=== PATIENT | male | born 1980 | race Caucasian/White ===

== ENCOUNTER 2025-03-18 14:29 | Inpatient (IN) | payer OTHER ==
[~2025-03-18] VITALS: Ht 180.3 cm; Wt 85.9 kg
[2025-03-18] MEDS ORDERED: 0.9% SODIUM CHLORIDE 10 ML SYRINGE IVP PRN (17:45)
[2025-03-18] MEDS: SODIUM CHLORIDE 0.9% 2,600 ML IV ONE (18:02)
[2025-03-18 18:07] LABS: PLATELET COUNT (AUTO) 153 K/uL (150-450); RED BLOOD CELL COUNT(AUTO) 4.76 MIL/uL (4.50-5.90); RED CELL DISTRIBUTION WIDTH 12.8 % (11.5-14.5); WHITE BLOOD COUNT (AUTO) 9.0 K/uL (4.5-11.0)
[2025-03-18 18:16] LABS: CALCIUM, TOTAL 8.1 mg/dL (8.8-10.5); CREATININE 0.92 mg/dL (0.60-1.30); GLOMERULAR FILTR. RATE CALC > 60 mL/min (>60); GLUCOSE,RANDOM 87 mg/dL (70-110); SODIUM SERUM 133 mmol/L (136-145); UREA NITROGEN, BLOOD 15 mg/dL (7-18)
[2025-03-18 18:25] LABS: LACTIC ACID 0.7 mmol/L (0.4-2.0)
[2025-03-18 18:28] LABS: TROPONIN I-HIGH SENSITIVITY Less Than 4 ng/L (<76)
[2025-03-18] MEDS: ONDANSETRON HCL 4 MG/2 ML VIAL IVP ONE (18:51)
[2025-03-18] MEDS: MIDAZOLAM HCL 5 MG/ML VIAL IVP ONE (19:19)
[2025-03-18] MEDS: VANCOMYCIN 1.5 GM/WATER(PEG) 300 ML IV ONE (19:53)
[2025-03-18] MEDS: LIDOCAINE 1% 10 ML VIAL SQ ONE (19:53)
[2025-03-18 19:58] LABS: APPEARANCE,URINE HAZY (CLEAR); GLUCOSE, URINE (UA) NEGATIVE (NEGATIVE); LEUKOCYTE ESTERASE ,URINE MODERATE (NEGATIVE); NITRATE,URINE NEGATIVE (NEGATIVE); OCCULT BLOOD,URINE MODERATE (NEGATIVE); SPECIFIC GRAVITIY, URINE 1.027 (1.003-1.030)
[2025-03-18] MEDS: *CLINICAL-CEFEPIME DOSING CLINICAL ONE (20:14)
[2025-03-18] MEDS ORDERED: ONDANSETRON HCL 4 MG/2 ML VIAL IVP PRN (20:15)
[2025-03-18 20:16] LABS: SULFOSALICYLIC ACID,URINE 3+ (Negative)
[2025-03-18 20:17] LABS: SQUAMOUS EPITHELIAL CELL,UR Rare /LPF (None Seen)
[2025-03-18] MEDS: DOCUSATE SODIUM 100 MG CAPSULE PO SCH (20:29)
[2025-03-18] MEDS: CEFEPIME HCL 1 GM in DEXTROSE 5%-WATER 50 ML IV SCH (21:32)
[2025-03-18] MEDS ORDERED: SODIUM CHLORIDE 0.9% 250 ML IV ONE (22:39)
[2025-03-18] MEDS: HEPARIN SODIUM,PORCINE 5,000 UNITS/ML VIAL SQ SCH (23:29)
[2025-03-18] MEDS: KETOROLAC TROMETHAMINE 15 MG/ML VIAL IVP PRN (23:38)
[2025-03-18] MEDS: ACETAMINOPHEN 325 MG TABLET PO PRN (23:39)
[2025-03-18 23:43] VITALS: BP 126/91; PULSE 73; RESP 19; TEMP 98.6; O2SAT 96
[2025-03-19 04:12] VITALS: BP 95/66; PULSE 63; RESP 16; TEMP 98.1; O2SAT 100
[2025-03-19 06:57] LABS: CALCIUM, TOTAL 8.0 mg/dL (8.8-10.5); CREATININE 0.87 mg/dL (0.60-1.30); GLOMERULAR FILTR. RATE CALC > 60 mL/min (>60); GLUCOSE,RANDOM 81 mg/dL (70-110); SODIUM SERUM 138 mmol/L (136-145); UREA NITROGEN, BLOOD 13 mg/dL (7-18)
[2025-03-19 07:05] LABS: PLATELET COUNT (AUTO) 145 K/uL (150-450); RED BLOOD CELL COUNT(AUTO) 4.27 MIL/uL (4.50-5.90); RED CELL DISTRIBUTION WIDTH 12.7 % (11.5-14.5); WHITE BLOOD COUNT (AUTO) 6.5 K/uL (4.5-11.0)
[2025-03-19 07:47] VITALS: BP 107/57; PULSE 52; RESP 17; TEMP 98.6; O2SAT 99
[2025-03-19] MEDS: VANCOMYCIN 1.5 GM/WATER(PEG) 300 ML IV SCH (09:03)
[2025-03-19] MEDS ORDERED: FentaNYL CITRATE PF 100 MCG/2 ML VIAL ONE ×2 (09:34→09:35)
[2025-03-19] MEDS ORDERED: MIDAZOLAM HCL 2 MG/2 ML VIAL ONE ×2 (09:34→09:35)
[2025-03-19 11:40] VITALS: BP 105/66; PULSE 57; RESP 18; TEMP 98.4; O2SAT 97
[2025-03-19] MEDS ORDERED: SODIUM CHLORIDE 0.9% 250 ML IV ONE (14:52)
[2025-03-19 19:59] VITALS: BP 106/72; PULSE 58; RESP 18; TEMP 98.4; O2SAT 100
[2025-03-20 04:44] VITALS: BP 142/60; PULSE 58; RESP 19; TEMP 97.3; O2SAT 100
[2025-03-20] MEDS ORDERED: RINGERS SOLUTION,LACTATED 1,000 ML IV ONE (06:29)
[2025-03-20 07:18] LABS: CALCIUM, TOTAL 8.3 mg/dL (8.8-10.5); CREATININE 0.68 mg/dL (0.60-1.30); GLOMERULAR FILTR. RATE CALC > 60 mL/min (>60); GLUCOSE,RANDOM 95 mg/dL (70-110); SODIUM SERUM 140 mmol/L (136-145); UREA NITROGEN, BLOOD 14 mg/dL (7-18)
[2025-03-20] MEDS ORDERED: GLYCOPYRROLATE 0.2 MG/ML VIAL ONE (07:46)
[2025-03-20] MEDS ORDERED: DEXAMETHASONE SOD PHOS 4 MG/ML VIAL ONE (07:46)
[2025-03-20] MEDS ORDERED: METOCLOPRAMIDE HCL 5 MG/ML 2 ML VIAL ONE (07:46)
[2025-03-20] MEDS ORDERED: LIDOCAINE/PF 2% 5 ML SYRINGE IVP ONE (07:46)
[2025-03-20] MEDS ORDERED: PROPOFOL 1% ISO-OSM 1000 MG/100 ML BOTTLE ONE (07:46)
[2025-03-20] MEDS ORDERED: PHENYLEPHRINE HCL IN 0.9% NACL 400 MCG/10 ML SYRINGE IVP ONE (07:46)
[2025-03-20 08:20] VITALS: BP 121/70; PULSE 57; RESP 18; TEMP 98.2; O2SAT 100
[2025-03-20] MEDS ORDERED: MUPIROCIN CALCIUM 2% 22 GM OINTMENT ONE (10:17)
[2025-03-20] MEDS ORDERED: VANCOMYCIN HCL 1 GM VIAL ONE (10:17)
[2025-03-20] MEDS: CHLORHEXIDINE GLUCONATE 2% TOWELETTE [2'S/6'S] TP ONE (10:32)
[2025-03-20] MEDS: RINGERS SOLUTION,LACTATED 1,000 ML IV ONE (10:32)
[2025-03-20] MEDS: ETHYL ALCOHOL 62% ANTISEPTIC NASAL SANITIZER 0.6 ML AMPUL NASAL ONE (10:33)
[2025-03-20] MEDS ORDERED: BUPIVACAINE 0.25%/EPI 1:200,000/PF 10 ML VIAL ONE (10:33)
[2025-03-20] MEDS: BUPIVACAINE 0.25%/EPI 1:200,000/PF 30 ML VIAL ONE (11:22)
[2025-03-20] MEDS ORDERED: HYDROCODONE/ACETAMINOPHEN 5-325 MG TABLET PO PRN (11:45)
[2025-03-20] MEDS: FAMOTIDINE 20 MG TABLET PO SCH (15:03)
== END 2025-03-20 20:23 | DRG 920 ==
LOC: EMS 14:29 → EDH 20:05 → 5S 22:30 → 6S 03-19 12:15
PROVIDERS: ADMIT Internal Medicine; ATTEND Internal Medicine
PROC: 0W980ZZ Drainage of Chest Wall, Open Approach (ICD-10-PCS; principal; 2025-03-20 11:05)
DX: L76.34 Postprocedural seroma of skin and subcutaneous tissue following other procedure (principal); E87.1 Hypo-osmolality and hyponatremia; T81.43XA Infection following a procedure, organ and space surgical site, initial encounter; L03.313 Cellulitis of chest wall; N39.0 Urinary tract infection, site not specified; L02.213 Cutaneous abscess of chest wall; I95.9 Hypotension, unspecified; Z88.0 Allergy status to penicillin
CPT/HCPCS: 71045; 76700; 80048; 80202; 81001; 81002; 83605; 83735; 84145; 84484; 85025; 85610; 87040; 87070; 87077; 87086; 87101; 87186; 87205; 93005; 96361; 96365; 96366; 96372; 96375; 99285; J0692; J1100; J1171; J1644; J1885; J2250; J2405; J2704; J2765; J3010; J3373; J3490; J7030; J7050; J7060; J7120; 36415-L1; 36415-TC